=== PATIENT | female | born 1955 | race Caucasian/White ===

== ENCOUNTER → 2016-06-20 | Day surgery (SDC) | payer BC, OTHER ==
[2016-06-09 09:27] VITALS: Ht 162.6 cm; Wt 60.9 kg
[~2016-06-20] VITALS: Ht 162.6 cm; Wt 60.9 kg
[~2016-06-20] MED LIST: AMIT10TA6 PO; ASCA500 PO; ATROPINE SULFATE 0.1 MG/ML 5ML SYR IV PRN; B-COTAB18 PO; BETA2500 PO; CHOL20007 PO; CLON0.5T3 PO; EpHEDrine SULFATE INJ 50 MG/ML AMP IV PRN; FENTANYL CITRATE INJ 50 MCG/1 ML 2 ML VIAL ONE; GING250C PO; LIDOCAINE HCL 2% 2 ML VIAL (20MG/ML) ONE; OMEG12006 PO; PROPOFOL IV EMULSION 10 MG/ML 20 ML VIAL IV ONE; SELE200T PO; SODIUM CHLORIDE 0.9% 500ML 500 ML IV ONE; UBIQ1CAP8 PO; VITA400C3 PO; ZNTT/150 PO
--- NOTE | 2016-06-20 14:37 | Endo History and Physical ---
History & Physical Date of Service: Jun 20, 2016. Chief Complaint: Screening Referring Physician: Dr. Conrteras History of Present Illness 60 yo CF who presents for screening colonoscopy. Past Surgical History Hx Cardiac Surgery: No Hx Internal Defibrillator: No Hx Pacemaker: No Hx Abdominal Surgery: Yes (LAPAROSCOPY) Hx of Implantable Prosthesis: No Hx Post-Op Nausea and Vomiting: No Hx Cancer Surgery: Yes (LT BREAST LUMPECTOMY) Hx Thoracic Surgery: No Hx Orthopedic: No Hx Urinary Tract Surgery: No Family History None Social History Smoking Status: Never Smoker Hx Substance Use: No Hx Alcohol Use: No Allergies Coded Allergies: Sulfa Drugs (Verified Allergy, Mild, UNKNOWN "I DON'T REMEMBER", 06/20/16) Ciprofloxacin (Verified Allergy, Unknown, MUSCLE AND JOINT ACHE, 06/20/16) Methimazole (Verified Allergy, Unknown, UNKNOWN "I DON'T REMEMBER", ) Opioid Analgesics (Verified Adverse Reaction, Severe, PASS OUT, 06/20/16) Current Medications Reported Home Medications Medications Dose Route/Sig Max Daily Dose Days Date Category Vitamin B Complex (B-Complex Vitamins) 1 Tab Tab 1 Tab PO DAILY 06/09/16 Reported Ubiquinol 100 Mg Cap 1 Tab PO DAILY 06/09/16 Reported Petra Extract (Petra (Zingiber Officinalis)) 250 Mg Cap 1 Tab PO DAILY 06/09/16 Reported [place] 3 ([place]-3 Fatty Acids) 1 Cap Cap 1 Tab PO DAILY 06/09/16 Reported Vitamin C (Ascorbic Acid) 500 Mg Tab 1 Tab PO DAILY 06/09/16 Reported Selenium 200 Mcg Tab 1 Tab PO DAILY 06/09/16 Reported Vitamin E 400 Iu (Vitamin E) 400 Unit Cap 400 Inter.unit PO DAILY 06/09/16 Reported Vitamin D3 (Cholecalciferol) 2,000 Unit Tab 1 Tab PO DAILY 06/09/16 Reported Beta Carotene 25,000 Unit Cap 1 Tab PO DAILY 06/09/16 Reported Zantac (Ranitidine HCl) 150 Mg Tab 150 Mg PO DAILY PRN 06/09/16 Reported Klonopin (Clonazepam) 0.5 Mg Tab 0.5 Mg PO BID 06/09/16 Reported Elavil (Amitriptyline Hcl) 10 Mg Tab 2 Tabs PO HS 06/09/16 Reported Vital Signs Weight (Kilograms): 60.91 Height (Feet): 5 Height (Inches): 4 Physical Exam General Appearance: WD/WN, no apparent distress Respiratory/Chest: Auscultation: breath sounds normal Cardiovascular: Heart Auscultation: RRR Abdomen: Bowel Sounds: normal Inspection & Palpation: soft, non-distended, no tenderness, guarding & rebound Assessment and Plan Assessment: 60 yo CF who presents for screening colonoscopy. Plan: Proceed with colonoscopy.
--- NOTE | 2016-06-20 15:21 | Discharge Instructions ---
Endoscopy Patient Instructions Date / Procedure(s) Performed Jun 20, 2016. Colonoscopy Allergy Information Coded Allergies: Sulfa Drugs (Verified Allergy, Mild, UNKNOWN "I DON'T REMEMBER", 06/20/16) Ciprofloxacin (Verified Allergy, Unknown, MUSCLE AND JOINT ACHE, 06/20/16) Methimazole (Verified Allergy, Unknown, UNKNOWN "I DON'T REMEMBER", ) Opioid Analgesics (Verified Adverse Reaction, Severe, PASS OUT, 06/20/16) Discharge Date / Findings Jun 20, 2016. External hemorrhoids Medication Instructions OK to resume all medications today as prescribed Reported Home Medications Medications Dose Route/Sig Max Daily Dose Days Date Category Vitamin B Complex (B-Complex Vitamins) 1 Tab Tab 1 Tab PO DAILY 06/09/16 Reported Ubiquinol 100 Mg Cap 1 Tab PO DAILY 06/09/16 Reported Petra Extract (Petra (Zingiber Officinalis)) 250 Mg Cap 1 Tab PO DAILY 06/09/16 Reported [place] 3 ([place]-3 Fatty Acids) 1 Cap Cap 1 Tab PO DAILY 06/09/16 Reported Vitamin C (Ascorbic Acid) 500 Mg Tab 1 Tab PO DAILY 06/09/16 Reported Selenium 200 Mcg Tab 1 Tab PO DAILY 06/09/16 Reported Vitamin E 400 Iu (Vitamin E) 400 Unit Cap 400 Inter.unit PO DAILY 06/09/16 Reported Vitamin D3 (Cholecalciferol) 2,000 Unit Tab 1 Tab PO DAILY 06/09/16 Reported Beta Carotene 25,000 Unit Cap 1 Tab PO DAILY 06/09/16 Reported Zantac (Ranitidine HCl) 150 Mg Tab 150 Mg PO DAILY PRN 06/09/16 Reported Klonopin (Clonazepam) 0.5 Mg Tab 0.5 Mg PO BID 06/09/16 Reported Elavil (Amitriptyline Hcl) 10 Mg Tab 2 Tabs PO HS 06/09/16 Reported Provider Instructions Activity Restrictions - No exercising or heavy lifting for 24 hours. - Do not drink alcohol the day of the procedure. - Do not drive a car or operate machinery until the day after the procedure. - Do not make any important decisions or sign important papers in 24 hours after the procedure. Following Day: - Return to full activity which may include returning to work/school. Diet Start your diet with liquids and light foods (jello, soup, juice, toast). Then eat your usual diet if not nauseated. Treatment For Common After Affects For mild abdominal pain, bloating, or excessive gas: - Rest - Eat lightly - Lie on right side Follow-Up Information Follow-up with Floresita Contreras as scheduled Anesthesia Information What You Should Know You have had a procedure that required some medicine to reduce anxiety and discomfort. This treatment is called moderate sedation. After receiving the treatment, you may be sleepy, but you will be able to breathe on your own. The effects of the treatment may last for several hours. Follow these instructions along with Activity/Diet recommendations noted above: * Do NOT do anything where dizziness or clumsiness would be dangerous. * Rest quietly at home today, then you can be up and about tomorrow. * Have a responsible person stay with you the rest of today. * You may have had an I.V. today. If so, you may take the dressing off later today. Recommendations Call your doctor if: * Trouble breathing * Continuous vomiting for more than 24 hours * Temperature above 101 degrees * Severe abdominal pain or bloating * Pain not relieved by pain medicine ordered * There is increased drainage or redness from any incision * A large amount of rectal bleeding greater than 2-3 tablespoons. (If you had a polyp/s removed or have hemorrhoids, a small amount of blood - from the rectum is to be expected.) * You have any unanswered questions or concerns. IN THE EVENT OF A SERIOUS EMERGENCY, GO TO THE NEAREST EMERGENCY ROOM Your discharge instructions were prepared by provider Sharad Anderson. Patient Instructions Signature Page Carmina Arambula Patient (or Guardian) Signature/Date: I have read and understand the instructions given to me by my caregivers. Caregiver/RN/Doctor Signature/Date: The above-named patient and/or guardian has received patient instructions on this date. + Original Patient Signature Page (only) stays with chart. Please make copy for patient.
--- NOTE | 2016-06-20 15:25 | GI REPORT ---
Procedure Date: 06/20/2016 3:00 PM Procedure: Colonoscopy Indications: Screening for colorectal malignant neoplasm Medicines: Monitored Anesthesia Care Complications: No immediate complications. Estimated Blood Loss: Estimated blood loss: none. Procedure: Pre-Anesthesia Assessment: - Prior to the procedure, a History and Physical was performed, and patient medications and allergies were reviewed. The patient's tolerance of previous anesthesia was also reviewed. The risks and benefits of the procedure and the sedation options and risks were discussed with the patient. All questions were answered, and informed consent was obtained. Prior Anticoagulants: The patient has taken no previous anticoagulant or antiplatelet agents. ASA Grade Assessment: II - A patient with mild systemic disease. After reviewing the risks and benefits, the patient was deemed in satisfactory condition to undergo the procedure. After I obtained informed consent, the scope was passed under direct vision. Throughout the procedure, the patient's blood pressure, pulse, and oxygen saturations were monitored continuously. The scope was introduced through the anus and advanced to the terminal ileum. The colonoscopy was performed without difficulty. The patient tolerated the procedure well. The quality of the bowel preparation was good. The terminal ileum, ileocecal valve, appendiceal orifice, and rectum were photographed. Findings: Non-bleeding external hemorrhoids were found during perianal exam. The hemorrhoids were small. The exam was otherwise without abnormality. Impression: - Non-bleeding external hemorrhoids. - The examination was otherwise normal. - No specimens collected. Recommendation: - Resume previous diet. - Continue present medications. - Repeat colonoscopy in 10 years for surveillance. - Return to primary care physician as previously scheduled. Sharad Anderson DO 06/20/2016 3:24:09 PM This report has been signed electronically. Note Initiated On: 06/20/2016 3:00 PM
[2016-06-20 15:50] VITALS: BP 112/65; PULSE 69; O2SAT 100
--- NOTE | 2016-06-20 16:47 | Anesthesiology Progress Note ---
Anesthesia Post Op Note Date & Time Jun 20, 2016 at 16:46 Vital Signs Pain Intensity: 0 Vital Signs Past 12 Hours Date Time Temp Pulse Resp B/P Pulse Ox O2 Delivery O2 Flow Rate FiO2 06/20/16 15:50 69 16 112/65 100 Room Air 06/20/16 15:35 77 16 103/57 98 Room Air 06/20/16 15:20 80 16 143/67 97 Room Air 06/20/16 14:38 36.9 77 18 136/79 100 Room Air Notes Mental Status: alert / awake / arousable, participated in evaluation Pt Amnestic to Procedure: Yes Nausea / Vomiting: adequately controlled Pain: adequately controlled Airway Patency, RR, SpO2: stable & adequate BP & HR: stable & adequate Hydration State: stable & adequate Anesthetic Complications: no major complications apparent
== END | disposition home or self-care (01) ==
LOC: C.GI 14:12
PROVIDERS: ATTEND Internal Medicine
DX: Z12.11 Encounter for screening for malignant neoplasm of colon (principal); K64.4 Residual hemorrhoidal skin tags; Z90.89 Acquired absence of other organs; Z85.3 Personal history of malignant neoplasm of breast; Z88.2 Allergy status to sulfonamides; Z88.1 Allergy status to other antibiotic agents; Z80.3 Family history of malignant neoplasm of breast

== ENCOUNTER → 2017-06-13 | Outpatient (CLI) | payer OTHER ==
[~2017-06-13] MED LIST changes: -ATROPINE SULFATE 0.1 MG/ML 5ML SYR IV PRN; -EpHEDrine SULFATE INJ 50 MG/ML AMP IV PRN; -FENTANYL CITRATE INJ 50 MCG/1 ML 2 ML VIAL ONE; -LIDOCAINE HCL 2% 2 ML VIAL (20MG/ML) ONE; -PROPOFOL IV EMULSION 10 MG/ML 20 ML VIAL IV ONE; -SODIUM CHLORIDE 0.9% 500ML 500 ML IV ONE
--- NOTE | 2017-06-14 15:41 | MAMMOGRAPHY REPORT ---
BILATERAL DIGITAL SCREENING MAMMOGRAM TOMOSYNTHESIS WITH CAD: 06/13/2017 CLINICAL HISTORY: Asymptomatic. Personal history of breast cancer. TECHNIQUE: Breast tomosynthesis in addition to standard 2D mammography was performed. Current study was also evaluated with a Computer Aided Detection (CAD) system. COMPARISON: Comparison is made to exams dated: 02/18/2016 mammogram, 02/16/2015 mammogram, 02/11/2014 m ammogram, 02/05/2013 mammogram, 12/22/2011 mammogram, and 06/14/2010 mammogram - [facility]ter. BREAST COMPOSITION: There are scattered areas of fibroglandular density in both breasts. FINDINGS: There are linear scar markers overlying each breast, denoting areas of prior surgery. The glandular pattern is similar to prior mammograms, with a few scattered benign rim calcifications. No suspicious mass, architectural distortion or cluster of suspicious microcalcifications is seen. IMPRESSION: ACR BI-RADS CATEGORY 2: BENIGN There is no mammographic evidence of malignancy. A 1 year screening mammogram is recommended. The pa tient will receive written notification of the results. Approximately 10% of breast cancers are not detected with mammography. A negative mammographic report should not delay biopsy if a clinically suggestive mass is present. Loren Garnica M.D. ay/:06/13/2017 19:00:34 Human Development Professor: Jeanette ODONNELL)([place]), [facility] letter sent: Normal 1/2 BI-RADS Code: ACR BI-RADS Category 2: Benign
== END | disposition home or self-care (01) ==
LOC: C.MAMM 09:51
PROVIDERS: ATTEND Obstetrics & Gynecology
DX: Z12.31 Encounter for screening mammogram for malignant neoplasm of breast (principal)